=== PATIENT | male | born 1955 | race Caucasian/White ===

== ENCOUNTER 2022-12-01 15:49 | Emergency (ER) | payer MEDICARE ==
[~2022-12-01] VITALS: Ht 177.8 cm; Wt 79.5 kg
[2022-12-01 16:31] VITALS: BP 104/71
[2022-12-01] MEDS ORDERED: LIDOCAINE 2%/EPI 1:100,000 inj. Multi-dose 20 ML VIAL SQ ONE (20:08)
[2022-12-01] MEDS ORDERED: bacitracin ointment unit dose packet TP ONE (21:35)
[2022-12-01] MEDS ORDERED: bacitracin 15gm ointment TP ONE (21:40)
[2022-12-02] MEDS ORDERED: bacitracin 15gm ointment TP ONE (08:00)
== END 2022-12-01 22:05 | disposition home or self-care (01) ==
LOC: ER 15:49
DX: S81.812A Laceration without foreign body, left lower leg, initial encounter (principal); W20.8XXA Other cause of strike by thrown, projected or falling object, initial encounter; Y93.89 Activity, other specified; Y92.89 Other specified places as the place of occurrence of the external cause; Y99.8 Other external cause status
CPT/HCPCS: 12002; 99282; J7030; A6449